=== PATIENT | female | born 1955 | race Caucasian/White ===

== ENCOUNTER 2017-01-21 01:51 | Emergency (ER) | payer OTHER ==
[~2017-01-21] VITALS: Ht 157.5 cm; Wt 82.7 kg
--- NOTE | 2017-01-21 01:50 | ED.REPORT ---
HPI-General Illness Date of Service Jan 21, 2017 ED Provider: Rahul Butler Patient is an otherwise healthy 78 year old female who presents to the ED via EMS complaining of a productive cough onset 2 weeks ago. Today her cough was worse with SOB and chest tightness. She denies fever, vomiting, extremity swelling, or any other symptoms. She initially reports no cardiac or asthma hx, but subsequently recalls an episode of reactive airways disease in the setting of infection two years ago. Nursing Notes Stated Complaint: COUGH/POSS PNEUMONIA Nursing Notes Reviewed: Yes Allergies: Uncoded Allergies: PENICILLIN (Allergy, Intermediate, hives, 01/21/17) Scheduled Azithromycin (Zithromax) 250 Mg Tablet 250 MG PO DAILY Prednisone (PredniSONE) 20 Mg Tablet 60 MG PO DAILY General Time Seen by MD: 01:50 Chief Complaint Cough Hx Obtained From: Patient, EMS Arrived By: Ambulance Sudden in Onset?: Yes Onset Occurred: More than a week ago... (2 weeks) Symptom Duration: Since onset Associated with: Reports: Shortness of breath Context Related History: Denies Asthma Past Medical History Past Medical History Reactive airways disease in the setting of an acute infection two years prior Past Surgical History Bilat breast reduction bilat vericose vein ablation Reports: Cholecystectomy, Hysterectomy Smoking History Former Smoker Ambulatory Status Independent Review of Systems Full Review of Systems Constitutional: Denies: Fever Respiratory: Reports: Prod cough, clear, Shortness of breath Cardiovascular: Reports: Chest pain (tightness ) GI: Denies: Vomiting Musculoskeletal: Denies: Extremity swelling Complete sys rev & neg: except as marked. Physical Exam Vital Signs Vital Signs Date Time Temp Pulse Resp B/P Pulse Ox O2 Delivery O2 Flow Rate FiO2 01/21/17 03:53 36.7 92 19 124/64 100 Room Air 01/21/17 02:13 102 15 93 Room Air 01/21/17 01:53 36.5 109 18 161/90 95 Room Air Initial VS: Reviewed Head / Eyes: Atraumatic, Normocephalic Neck: Full range of motion Cardiovascular: Regular rate & rhythm, Heart sounds normal, Intact distal pulses Skin: Warm, Dry Neurologic: Alert, Oriented, Nonfocal Psychiatric: Mood/affect normal, Behavior normal, Normal thought content General/Constitutional: Awake, Alert, Well developed Appearance / Presentation: Positive: Obese Respiratory / Chest: No rales Wheezing / Retractions: Positive: Wheezing moderate rhonchus cough Lower Extremity / Pelvis / MS: No edema Interpretation & Diagnostics Lab Results Interpretation Result Diagram: 01/21/17 0210 01/21/17 0210 Test 01/21/17 02:10 01/21/17 03:00 White Blood Count 4.6th/mm3 (3.8-10.1) Red Blood Count 4.78mil/mm3 (3.90-5.20) Hemoglobin 14.4g/dL (12.0-15.6) Hematocrit 41.7% (35.0-46.0) Mean Corpuscular Volume 87.2fL (81-100) Mean Corpuscular Hemoglobin 30.1pg (27.0-35.0) Mean Corpuscular Hemoglobin Concent 34.5% (32.0-37.0) Red Cell Distribution Width 13.7% (12.3-15.4) Platelet Count 212bil/L (150-400) Neutrophils (%) (Auto) 38.4% (40-74) Lymphocytes (%) (Auto) 45.3% (14-46) Monocytes (%) (Auto) 8.4% (4-12) Eosinophils (%) (Auto) 7.3% (0-5) Basophils (%) (Auto) 0.4% (0-3) Prothrombin Time 9.6sec (8.1-12.5) Prothromb Time International Ratio 0.90ratio Activated Partial Thromboplast Time 26.2sec (22.8-33.0) Sodium Level 141mEq/L (134-144) Potassium Level 3.6mEq/L (3.5-5.2) Chloride Level 103mEq/L (97-108) Carbon Dioxide Level 20mmol/L (18-29) Blood Urea Nitrogen 16mg/dL (8-27) Creatinine 0.59mg/dL (0.57-1.00) Estimat Glomerular Filtration Rate 149mL/min (>59) Glucose Level 112mg/dL (60-99) Lactic Acid Level 1.4mmol/L (0.4-2.0) Calcium Level 9.4mg/dL (8.5-10.1) Magnesium Level 1.8mg/dL (1.6-2.6) Total Bilirubin 0.2mg/dL (0.0-1.2) Aspartate Amino Transf (AST/SGOT) 25U/L (0-50) Alanine Aminotransferase (ALT/SGPT) 9U/L (0-32) Alkaline Phosphatase 92U/L (25-165) Troponin T 0.010ug/L (0.0-0.011) Pro-B-Type Natriuretic Peptide 17pg/mL (0-287) Total Protein 6.9g/dL (6.4-8.4) Albumin 4.1g/dL (3.4-5.0) Procalcitonin 0.04ng/mL (0.00-0.08) Urine Color Yellow (YELLOW) Urine Appearance Clear (CLEAR,HAZY) Urine pH 6.0 (5.0-8.0) Urine Specific [place] 1.020 (1.003-1.035) Urine Protein Negativemg/dL (NEG,TRACE) Urine Glucose (UA) Negativemg/dL (NEGATIVE) Urine Ketones 15mg/dL (NEGATIVE) Urine Occult Blood Small (NEGATIVE) Urine Nitrite Negative (NEGATIVE) Urine Bilirubin Negative (NEGATIVE) Urine Urobilinogen Normalmg/dL (NORMAL) Urine Leukocyte Esterase Negative (NEGATIVE) Urine RBC 3-10/hpf (0-2) Urine WBC 0-5/hpf (0-5) Urine Epithelial Cells Occasional/hpf (NONE-MOD) Urine Crystals None seen (NONE SEEN) Urine Bacteria None/hpf (NONE-FEW) Urine Hyaline Casts None/lpf (NONE) Urine Granular Casts None seen (NONE SEEN) Urine Waxy Casts None seen (NONE SEEN) Urine Red Blood Cell Casts None seen (NONE SEEN) Urine White Blood Cell Casts None seen (NONE SEEN) Urine Mucus None seen (None Seen) Urine Trichomonas None seen (NONE SEEN) Urine Yeast None (NONE SEEN) Urinalysis Comment None Urine Culture Reflexed Not indicated ECG Interpretation ECG Interpretation: Sinus tachy rate 102 left axis deviation left anterior fascicular block probable anteroseptal infarct, old Time: 02:35 Interpreted by: ED physician X-Ray Chest Interpretation Chest Xray Interpretation: No pneumonia View: Portable, 1 view Interpretation / Wet Read by: Interpret - ED physician Re-Eval/Medical Decision Med Decision/Clinical Course 61-year-old female presents with bronchospasm and a productive cough rate cough began about two weeks ago and is progressed, now with tightness and more production of sputum. She is improved after nebs and steroids here. Home with albuterol puffer and spacer, a six-day course of prednisone, azithromycin Z-Darrel, and plan for follow-up with PCP. Prompt return here if worse. Time of Eval: 03:14 Re-Evaluation/Progress Note: Rechecked patient. She is feeling better and would like to go home. Small inspirational wheeze but much better compared to earlier. Discussed plan for discharge. Patient understands and agrees with plan. All questions addressed at this time. Counseled Regarding: Diagnosis, Lab results, Need for follow-up, When/why to return to ED Discharge & Departure Shift Change Sign-Out Response to Therapy: Improved Primary Impression: Acute bronchitis Bronchitis organism: unspecified organism Qualified Code: J20.9 - Acute bronchitis, unspecified Additional Impression: Reactive airway disease that is not asthma Disposition: Home Discharge Condition All VS Reviewed: Yes Condition: Improved Additional Instructions: Take as azithromycin one tablet daily for four more days. Albuterol two puffs every four hours with spacer as needed for cough and wheeze. Prednisone three tablets daily for six days. Follow-up with your doctor in the office. Return if worsening despite treatment. Scribe Attestation Portions of this note were transcribed by Ankit Ruffin. I, Dr. Butler personally performed the history, physical exam and medical decision-making; I reviewed and confirmed the accuracy of the information in the transcribed note. Signed by: Ankit Ruffin 01/21/2017, 0322 Bill Butler MD Jan 21, 2017 01:50 ANKIT RUFFIN Jan 21, 2017 01:57
[2017-01-21 01:53] VITALS: BP 161/90; PULSE 109; RESP 18; O2SAT 95
[2017-01-21] MEDS ORDERED: Albuterol 2.5 mg/3 mL Inhalation Solution NEB ONE (01:55)
[2017-01-21] MEDS ORDERED: Albuterol-Ipratropium 3 mL Inhalation Solution NEB ONE (01:55)
[2017-01-21 02:13] VITALS: PULSE 102; RESP 15; O2SAT 93
[2017-01-21] MEDS ORDERED: MethylprednisoLONE Sodium Succinate 62.5 mg/mL 2 mL Inj IVPUSH ONE (02:25)
[2017-01-21 02:28] LABS: BASOPHILS % (AUTO) 0.4 % (0-3); EOSINOPHILS % (AUTO) 7.3 % (0-5); MONOCYTES % (AUTO) 8.4 % (4-12); Mean Corpuscular Hemoglobin 30.1 pg (27.0-35.0); Mean Corpuscular Volume 87.2 fL (81-100); NEUTROPHILS % (AUTO) 38.4 % (40-74); Platelet Count 212 bil/L (150-400)
[2017-01-21 02:46] LABS: INR 0.9 ratio
[2017-01-21 02:52] LABS: Magnesium 1.8 mg/dL (1.6-2.6)
[2017-01-21 02:54] LABS: TROPONIN T 0.01 ug/L (0.0-0.011)
[2017-01-21] MEDS ORDERED: _Albuterol-HFA 60 Puff Inhaler INHALATION PRN (03:15)
[2017-01-21] MEDS ORDERED: ZIT250 PO (03:20)
[2017-01-21] MEDS ORDERED: PRE20 PO (03:20)
[2017-01-21] MEDS ORDERED: Albuterol HFA 200 Puff Inhaler (Vent Pts Only) INHALATION PRN (03:25)
[2017-01-21 03:49] LABS: APPEARANCE,URINE CLEAR (CLEAR,HAZY); COLOR,URINE YELLOW (YELLOW); OCCULT BLOOD,URINE SMALL (NEGATIVE); UROBILINOGEN,URINE NORMAL (NORMAL)
[2017-01-21 03:53] VITALS: BP 124/64; PULSE 92; RESP 19; O2SAT 100
--- NOTE | 2017-01-21 08:54 | DRSVH ---
PROCEDURE: X-RAY CHEST ONE VIEW, PORTABLE ([id number]) INDICATIONS: cough, sputum TECHNIQUE: One view of the chest was acquired. COMPARISON: None. FINDINGS: Surgical changes and devices: Right upper quadrant surgical clips.. Lungs and pleura: No pleural effusions or pneumothorax. Lungs are clear. Lung volumes are increase d with flattening of the hemidiaphragms suggesting COPD. Mediastinum: Mediastinal contours appear normal. Heart size is normal. Bones and chest wall: No suspicious bony lesions. Overlying soft tissues appear unremarkable. IMPRESSION: Lung volumes are increased suggesting COPD, correlate with pulmonary functions test. Dictated by: Dioni Canela [facility] Interpreted: Jhoana Tejeda MD on 01/21/2017 at 8:53 Transcribed by: EFE on 01/21/2017 at 8:53 Approved by: Jhoana Tejeda MD, PhD on 01/21/2017 at 9:46
== END 2017-01-21 03:55 | disposition home or self-care (01) ==
LOC: SED 01:51 → EDBD 01:51 → SED 03:55
DX: J20.9 Acute bronchitis, unspecified (principal); J98.8 Other specified respiratory disorders; R07.89 Other chest pain; Z87.891 Personal history of nicotine dependence
CPT/HCPCS: 36415; 71010; 80053; 81000; 83605; 83735; 83880; 84145; 84484; 85025; 85610; 85730; 87040; 87205; 93005; 94640; 94664; 96374; 99285; J2930; J7613; J7620

== ENCOUNTER 2017-02-21 19:21 | Emergency (ER) | payer OTHER ==
[~2017-02-21] VITALS: Ht 157.5 cm; Wt 82.3 kg
[~2017-02-21 19:21] MED LIST: PRE20 PO; ZIT250 PO
[2017-02-21 19:43] VITALS: BP 168/98; PULSE 81; RESP 18; O2SAT 96
--- NOTE | 2017-02-21 20:28 | ED.REPORT ---
HPI-Dyspnea / Wheezing Date of Service Feb 21, 2017 ED Provider: Chito Ceron MD Pt is a 61 y/o female w/ a hx of reactive airways disease, presenting to the ED c/o clear productive cough onset 4 days ago. She c/o associated sinus pressure and green nasal discharge which has been occurring for about 10 days, mild SOB which only occurs during her cough. The patient was seen in the ED about 1 month ago and was diagnosed with bronchitis and given an albuterol inhaler. The patient was seen at Urgent Care yesterday and was given Doxycycline for sinusitis. She does not have a cough suppressant. Pt denies chest pain, nausea, vomiting, fever, chills. She does not smoke. She denies periods of immobilization, leg pain or swelling, hx of PE or DVT. Nursing Notes Stated Complaint: CANT STOP COUGHING Chief Complaint: Respiratory Complaints Nursing Notes Reviewed: Yes Allergies: Coded Allergies: Penicillins (Verified Allergy, Mild, HIVES, 02/21/17) apremilast (Verified Allergy, Mild, PSYCHOTIC BREAKDOWN, 02/21/17) MEDICATION FOR PSORIASIS egg (Verified Allergy, Mild, RASH, 02/21/17) Scheduled Azithromycin (Zithromax) 250 Mg Tablet 250 MG PO DAILY Azithromycin (Zithromax (Z-Darrel)) 250 Mg Tablet 250 MG PO DIRECTED Take two tablets by mouth on day 1, then take one tablet daily on days 2 through 5. Prednisone (PredniSONE) 20 Mg Tablet 60 MG PO DAILY Scheduled PRN Promethazine DM Syrup (Promethazine DM Syrup) 118 Ml Syrup 5 ML PO HS PRN PRN For Cough General Time Seen by MD: 20:27 Chief Complaint Cough Hx Obtained From: Patient Arrived By: Walk-in Sudden in Onset?: No Onset Occurred: 4 days ago Symptom Duration: Since onset Severity: Current: No pain currently Severity: Maximum: No pain Recent Healthcare: Recent doctor visit, Recent testing, Previous diagnosis Similar Sx Previous: Yes Risk Factors PE Risk Stratification No risk factors Past Medical History Past Medical History Reactive airways disease in the setting of an acute infection two years prior Past Surgical History Bilat breast reduction bilat vericose vein ablation Reports: Cholecystectomy, Hysterectomy Smoking History Former Smoker Ambulatory Status Independent Review of Systems Constitutional: Denies: Chills, Fever Respiratory: Reports: Prod cough, clear, Shortness of breath Cardiovascular: Denies: Chest pain Musculoskeletal: Denies: Extremity pain, Extremity swelling Complete sys rev & neg: except as marked. GI: Denies: Nausea, Vomiting Physical Exam Initial Vital Signs Vital Signs (First) Date Time Temp Pulse Resp B/P Pulse Ox O2 Delivery O2 Flow Rate FiO2 02/21/17 19:43 37.0 81 18 168/98 96 Room Air Initial VS: Reviewed, Vital signs abnormal Head / Eyes: Atraumatic, Normocephalic, PERRL Abdomen / GI: Soft, Non-tender Extremities: Vascular intact, Neuro intact, No swelling Skin: Warm, Dry, No cyanosis Neurologic: Alert, Oriented, Nonfocal Psychiatric: Mood/affect normal, Behavior normal, Normal thought content General/Constitutional: Awake, Alert, No acute distress, Well appearing, Cooperative, Not toxic appearing Neck: Atraumatic, Supple, No meningismus, Full range of motion Respiratory / Chest: Breath sounds NL, Breath sounds = bilat, No respiratory distress, No rales, No rhonchi, No wheezing, No retractions, No stridor Cardiovascular: Heart rate NL, Regular rhythm, Heart sounds NL, No murmurs ENT: Airway patent, Mucous membranes moist No sinus tenderness Interpretation & Diagnostics X-Ray Chest Interpretation Chest Xray Interpretation: IMPRESSION: No acute cardiopulmonary disease. Dictated by: Riccardo Cabrera M.D. on 02/21/2017 at 21:12 Approved by: Riccardo Cabrera M.D. on 02/21/2017 at 21:12 View: Portable, 1 view Interpretation / Wet Read by: Interpret - Radiologist Re-Eval/Medical Decision Med Decision/Clinical Course 61-year-old female history of bronchitis presenting with cough 4 days productive of clear and yellow sputum. Denies any fevers, chest pain, shortness of breath. She has no risk factors for blood clot. Her vital signs are stable. Her x-rays clear. Likely with developing bronchitis. She will be treated with azithromycin and cough suppressant. She is advised to follow up with her primary doctor in several days for recheck. Return precautions given. Re-Evaluation/Progress : Time of Eval: 22:07 Re-Evaluation/Progress Note: Pt rechecked. Discussed imaging results. Informed pt of plan for discharge. Pt understands and agrees with plan for discharge. F/U instructions and RTER warnings given. All questions addressed. Counseled Regarding: Diagnosis, Need for follow-up, When/why to return to ED Discharge & Departure Impression: Primary Impression: Acute bronchitis Bronchitis organism: unspecified organism Qualified Code: J20.9 - Acute bronchitis, unspecified Disposition: Home Discharge Condition All VS Reviewed: Yes Condition: Stable Patient Instructions: Acute Bronchitis (ED) Additional Instructions: The chest x-ray showed no sign of pneumonia. You have no risk factors for blood clot in the lungs. I suspect you have bronchitis. This may be viral although there certainly is a chance it is bacterial therefore I would like to start you on antibiotics. Take the Z-pack as directed. You can use promethazine DM at night for cough. Return to the emergency department if you experience fever, significant shortness of breath, vomiting, or for other concerning symptoms. Follow-up with your primary care doctor in 2-3 days for a recheck. Referrals: Leah Bryant MD (PCP) Scribe Attestation Portions of this note were transcribed by Gulshan Singh. I, Dr. Ceron personally performed the history, physical exam and medical decision-making; I reviewed and confirmed the accuracy of the information in the transcribed note. copies to: Leah Bryant MD, Ben M MD Feb 21, 2017 20:28 GULSHAN SINGH Feb 21, 2017 20:36
--- NOTE | 2017-02-21 21:14 | DRSVH ---
PROCEDURE: X-RAY CHEST ONE VIEW, PORTABLE ([id number]) INDICATIONS: 61 year-old female with cough. TECHNIQUE: One view of the chest was acquired. COMPARISON: [facility], CR, XR CHEST 1VW (PORTABLE), 01/21/2017, 1:54. FINDINGS: Surgical changes and devices: Cholecystectomy clips are again noted. Lungs and pleura: No pleural effusions or pneumothorax. Lungs are clear. Mediastinum: Mediastinal contours appear normal. Heart size is normal. Bones and chest wall: No suspicious bony lesions. Overlying soft tissues appear unremarkable. IMPRESSION: No acute cardiopulmonary disease. Dictated by: Riccardo Cabrera M.D. on 02/21/2017 at 21:12 Approved by: Riccardo Cabrera M.D. on 02/21/2017 at 21:12
[2017-02-21] MEDS ORDERED: Promethazine 1.25 mg/mL 118 mL Syrup PO ONE (22:05)
[2017-02-21] MEDS ORDERED: D-ME118S8 PO (22:07)
[2017-02-21] MEDS ORDERED: AZIT250T4 PO (22:07)
[2017-02-21 22:38] VITALS: BP 155/97; PULSE 77; RESP 18; O2SAT 96
== END 2017-02-21 22:39 | disposition home or self-care (01) ==
LOC: SED 19:21
DX: J20.9 Acute bronchitis, unspecified (principal); J45.909 Unspecified asthma, uncomplicated; Z87.891 Personal history of nicotine dependence; Z88.0 Allergy status to penicillin; Z88.8 Allergy status to other drugs, medicaments and biological substances; Z91.012 Allergy to eggs